=== PATIENT | male | born 1960 | race Caucasian/White ===

== ENCOUNTER → 2016-08-31 | Outpatient (CLI) | payer MEDICARE, MEDICAID ==
[~2016-08-31] MED LIST: ACETAMINOPHEN W1 TA6 PO; ALLEGRA 180MG180 MG PO; AMBIEN 10MG10 MG PO; AMBIEN10 MG PO; ASPIRIN 81M81 MG/TA2 PO; ATARAX 25MG25 MG/TAB PO; ATENOLOL50 MG PO; CEPHALEXIN500 M1; CLARITIN 1010 MG/TAB PO; CLARITIN10 MG PO; COLACE 100100 MG/CAP PO; FEXOFENADINE60 MG PO; FLOMAX 0.40.4 MG/CAP PO; HYTRIN 5MG C5 MG/CAP PO; IMDUR 30MG30 MG/TAB PO; IMDUR 60MG60 MG/TAB PO; ISOSORBIDE MON120 MG PO; KLOR-CON M2020 MEQ PO; LASIX 20MG TABL20 MG PO; LIPITOR 10MG10 MG PO; LIPITOR 80MG80 MG PO; LOPRESSOR 550 MG/TAB PO; LORTAB 5/500 501 TAB PO; LOW DOSE ASPIRI81 MG PO; METOPROLOL SUCC50 MG PO; MOTRIN800 MG PO; NAPROXEN DELAY500 MG PO; NITROSTAT0.4 MG/TAB SL; NORCO 325 MG-51 TA1 PO; NORCO 325 MG-51 TAB PO; NORVASC 5MG5 MG/TAB PO; PACERONE200 MG PO; PLAVIX 75MG TAB75 MG PO; POTASSIUM CHLO10 ME1 PO; POTASSIUM GLUCO80 MG; POTASSIUM GLUCO80 MG PO; POTASSIUM20 MEQ PO; PRAVACHOL 40MG40 MG PO; PRAVACHOL80 MG PO; PREDNISONE20 MG PO; RANEXA 500MG T500 MG PO; RANEXA1000 MG PO; TENORMIN 5050 MG/TAB PO; TERAZOSIN5 MG PO; TOPROL XL 50MG50 MG PO; TOPROL XL100 MG PO; TYLENOL W/COD1 UDTAB PO; ZANTAC 150MG T150 MG PO; [UNRECOGNIZED DRUG - REMARK]
== END ==
LOC: COL.RAD 08-26 13:00
DX: I71.4 Abdominal aortic aneurysm, without rupture (principal); Z98.890 Other specified postprocedural states; N13.39 Other hydronephrosis; Z98.84 Bariatric surgery status; K44.9 Diaphragmatic hernia without obstruction or gangrene; I51.7 Cardiomegaly; I25.10 Atherosclerotic heart disease of native coronary artery without angina pectoris
CPT/HCPCS: Q9967

== ENCOUNTER 2016-10-20 13:08 | Inpatient (IN) | payer MEDICARE, MEDICAID ==
[~2016-10-20] VITALS: Ht 180.3 cm; Wt 157.0 kg
[~2016-10-20 13:08] MED LIST changes: -COLACE 100100 MG/CAP PO; -LASIX 20MG TABL20 MG PO; -NITROSTAT0.4 MG/TAB SL; -NORVASC 5MG5 MG/TAB PO; -ZANTAC 150MG T150 MG PO
[2016-10-20 13:43] LABS: BASO % 0.5 % (0.0-2.0); EOS # 0.2 (0.0-0.7); EOS % 3.3 % (0-4.0); GRAN # 4.2 (1.4-6.5); GRAN % 67.6 % (42.2-75.2); HEMOGLOBIN 12.6 g/dl (13.5-18.0); MEAN CELL VOLUME 92 fl (80.0-100.0); MEAN CORPUSCULAR HEMOGLOBIN 32 pg (27.0-31.0); MEAN CORPUSCULAR HGB CONC 34 g/dl (33.0-37.0); MEAN PLATELET VOLUME 9.6 fl (7.4-10.4); MONO # 0.7 (0.1-0.6); MONO % 11.1 % (1.7-9.3); PLATELET COUNT 104 K/mm3 (130-400); REDCELL DISTRIBUTION WIDTH-CV 13.2 % (11.5-14.5); WHITE BLOOD COUNT 6.1 K/mm3 (4.8-10.8)
[2016-10-20 13:44] LABS: HEMATOCRIT 36.6 % (42.0-52.0)
[2016-10-20 13:47] LABS: INR 1.1 (0.8-3.0); PROTHROMBIN TIME 12.2 SECONDS (9.7-12.8)
[2016-10-20 13:50] LABS: PARTIAL THROMBOPLASTIN TIME 28.8 SECONDS (26.0-37.0)
[2016-10-20 13:57] LABS: ALANINE AMINOTRANSFERASE 27 U/L (21-72); ALBUMIN 3.7 gm/dL (3.5-5.0); ALKALINE PHOSPHATASE 55 U/L (50-136); ANION GAP 9 mmol/L (7-16); BILIRUBIN,TOTAL 1.2 mg/dL (0.0-1.0); BLOOD UREA NITROGEN 18 mg/dL (9-20); CALCIUM 8.8 mg/dL (8.4-10.2); CARBON DIOXIDE 25 mmol/L (22-30); CHLORIDE 104 mmol/L (98-107); CREATININE, serum 1.05 mg/dL (0.66-1.25); GLUCOSE 104 mg/dL (74-106); POTASSIUM 4.5 mmol/L (3.4-5.0); SODIUM 138 mmol/L (137-145); TOTAL PROTEIN 6.5 gm/dL (6.4-8.2)
[2016-10-20 14:08] LABS: TROPONIN-I < 0.012 ng/mL (0.000-0.034)
[2016-10-20] MEDS ORDERED: NITROSTAT0.4 MG/TAB SL (15:18)
[2016-10-20 16:24] VITALS: BP 130/66; PULSE 53; TEMP 97.9
[2016-10-20 19:45] VITALS: BP 116/64; PULSE 52; TEMP 97.4
[2016-10-20 23:28] VITALS: BP 112/54; PULSE 58; TEMP 98.7
[2016-10-21 03:50] VITALS: BP 121/47; PULSE 58; TEMP 98.4
[2016-10-21 07:28] VITALS: BP 118/64; PULSE 59; TEMP 98
[2016-10-21] MEDS ORDERED: NORVASC 5MG5 MG/TAB PO (11:23)
[2016-10-21 11:54] VITALS: BP 105/58; PULSE 54; TEMP 98.3
== END 2016-10-21 12:20 | disposition home or self-care (01) | DRG 311 ==
LOC: COL.ER 13:08 → MEDICAL 14:40
PROVIDERS: Family Medicine; Internal Medicine
DX: I20.0 Unstable angina (principal); Z68.42 Body mass index [BMI] 45.0-49.9, adult; E66.01 Morbid (severe) obesity due to excess calories; I10 Essential (primary) hypertension; D69.6 Thrombocytopenia, unspecified; Z95.5 Presence of coronary angioplasty implant and graft; Z95.1 Presence of aortocoronary bypass graft; Z86.718 Personal history of other venous thrombosis and embolism; Z88.0 Allergy status to penicillin; Z87.891 Personal history of nicotine dependence; Z86.73 Personal history of transient ischemic attack (TIA), and cerebral infarction without residual deficits
CPT/HCPCS: 99223-AI; 99238; J1650

== ENCOUNTER → 2016-11-30 | Outpatient (CLI) | payer MEDICARE, MEDICAID ==
[~2016-11-30] VITALS: Ht 180.3 cm; Wt 156.7 kg
[~2016-11-30] MED LIST changes: +COLACE 100100 MG/CAP PO; +LASIX 20MG TABL20 MG PO; +NITROSTAT0.4 MG/TAB SL; +NORVASC 5MG5 MG/TAB PO; +ZANTAC 150MG T150 MG PO
[2016-11-30 12:57] VITALS: BP 125/65; PULSE 72
== END ==
LOC: LIGHT 09:54
DX: I10 Essential (primary) hypertension (principal); E66.01 Morbid (severe) obesity due to excess calories; Z68.42 Body mass index [BMI] 45.0-49.9, adult; Z98.84 Bariatric surgery status

== ENCOUNTER → 2017-01-25 | Outpatient (CLI) | payer MEDICARE, MEDICAID | LOC: EDSTATUS 07:46 → COL.RAD 09:58 | DX: N20.0 Calculus of kidney (principal) | CPT/HCPCS: A9503 ==

== ENCOUNTER 2017-03-22 10:04 | Emergency (ER) | payer MEDICARE, MEDICAID ==
[2006-10-17 10:47] VITALS: BP 146/60
[~2017-03-22] VITALS: Ht 180.3 cm; Wt 156.8 kg
[~2017-03-22 10:04] MED LIST changes: -COLACE 100100 MG/CAP PO; -LASIX 20MG TABL20 MG PO; -ZANTAC 150MG T150 MG PO
[2017-03-22 10:08] VITALS: TEMP 97.7
[2017-03-22 10:40] LABS: BASO % 0.8 % (0.0-2.0); EOS # 0.2 (0.0-0.7); EOS % 3.5 % (0-4.0); GRAN # 3.1 (1.4-6.5); GRAN % 60.5 % (42.2-75.2); HEMATOCRIT 37.2 % (42.0-52.0); HEMOGLOBIN 12.8 g/dl (13.5-18.0); LYMPH # 1.1 (1.2-3.4); LYMPH % 21.9 % (20.0-51.0); MEAN CELL VOLUME 91 fl (80.0-100.0); MEAN CORPUSCULAR HEMOGLOBIN 31 pg (27.0-31.0); MEAN CORPUSCULAR HGB CONC 34 g/dl (33.0-37.0); MEAN PLATELET VOLUME 9.4 fl (7.4-10.4); MONO # 0.6 (0.1-0.6); MONO % 12.5 % (1.7-9.3); PLATELET COUNT 122 K/mm3 (130-400); RED BLOOD COUNT 4.07 M/mm3 (4.20-5.60); REDCELL DISTRIBUTION WIDTH-CV 13.1 % (11.5-14.5); WHITE BLOOD COUNT 5.1 K/mm3 (4.8-10.8)
[2017-03-22 10:48] LABS: ADJUSTED CALCIUM 8.9 mg/dL (8.4-10.2); ALANINE AMINOTRANSFERASE 23 U/L (21-72); ALKALINE PHOSPHATASE 58 U/L (50-136); ANION GAP 10 mmol/L (7-16); BLOOD UREA NITROGEN 18 mg/dL (9-20); CALCIUM 8.9 mg/dL (8.4-10.2); CARBON DIOXIDE 22 mmol/L (22-30); CHLORIDE 105 mmol/L (98-107); CREATININE, serum 1.02 mg/dL (0.66-1.25); GLUCOSE 113 mg/dL (74-106); POTASSIUM 4.4 mmol/L (3.4-5.0); SODIUM 137 mmol/L (137-145); TOTAL PROTEIN 6.8 gm/dL (6.4-8.2)
[2017-03-22 11:00] LABS: B-TYPE NATRIURETIC PEPTIDE 371 pg/mL (0-125)
[2017-03-22 11:02] LABS: TROPONIN-I < 0.012 ng/mL (0.000-0.034)
[2017-03-22] MEDS ORDERED: LASIX 20MG TABL20 MG PO (11:20)
[2017-03-22] MEDS ORDERED: COLACE 100100 MG/CAP PO (11:21)
[2017-03-22] MEDS ORDERED: ZANTAC 150MG T150 MG PO (11:21)
[2017-03-22 12:13] VITALS: BP 112/64; PULSE 55
== END 2017-03-22 12:13 | disposition home or self-care (01) ==
LOC: COL.ER 10:04
PROVIDERS: Nurse Practitioner
DX: S61.441A Puncture wound with foreign body of right hand, initial encounter (principal); R07.2 Precordial pain; I10 Essential (primary) hypertension; I48.92 Unspecified atrial flutter; I25.10 Atherosclerotic heart disease of native coronary artery without angina pectoris; E78.5 Hyperlipidemia, unspecified; N40.0 Benign prostatic hyperplasia without lower urinary tract symptoms; Z23 Encounter for immunization; Z87.891 Personal history of nicotine dependence; Z79.82 Long term (current) use of aspirin; Z79.02 Long term (current) use of antithrombotics/antiplatelets; Z86.73 Personal history of transient ischemic attack (TIA), and cerebral infarction without residual deficits; Z86.79 Personal history of other diseases of the circulatory system; Z95.1 Presence of aortocoronary bypass graft; Z98.890 Other specified postprocedural states; W45.8XXA Other foreign body or object entering through skin, initial encounter; Y92.009 Unspecified place in unspecified non-institutional (private) residence as the place of occurrence of the external cause
CPT/HCPCS: J1170; J2270; J2405; J7040

== ENCOUNTER → 2017-06-17 | Outpatient (CLI) | payer MEDICARE, MEDICAID ==
[~2017-06-17] VITALS: Ht 180.3 cm; Wt 173.5 kg
[~2017-06-17] MED LIST changes: +COLACE 100100 MG/CAP PO; +LASIX 20MG TABL20 MG PO; +PHENTERMINE15 MG PO; +ZANTAC 150MG T150 MG PO
== END ==
LOC: LIGHT 11:07
DX: Z98.84 Bariatric surgery status (principal); I10 Essential (primary) hypertension; E66.01 Morbid (severe) obesity due to excess calories; Z68.43 Body mass index [BMI] 50.0-59.9, adult; Z71.3 Dietary counseling and surveillance

== ENCOUNTER → 2017-07-15 | Outpatient (CLI) | payer MEDICARE, MEDICAID ==
[~2017-07-15] VITALS: Ht 180.3 cm; Wt 170.3 kg
[2017-07-15 14:32] VITALS: BP 120/72; PULSE 60
== END ==
LOC: LIGHT 10:58
DX: Z98.84 Bariatric surgery status (principal); I10 Essential (primary) hypertension; E66.01 Morbid (severe) obesity due to excess calories; Z68.43 Body mass index [BMI] 50.0-59.9, adult; Z71.3 Dietary counseling and surveillance

== ENCOUNTER → 2017-09-16 | Outpatient (CLI) | payer MEDICARE, MEDICAID ==
[~2017-09-16] VITALS: Ht 180.3 cm; Wt 167.1 kg
[2017-09-16 13:58] VITALS: BP 140/80; PULSE 72
== END ==
LOC: LIGHT 08-19 09:50
DX: Z98.84 Bariatric surgery status (principal); I10 Essential (primary) hypertension; E66.01 Morbid (severe) obesity due to excess calories; Z68.43 Body mass index [BMI] 50.0-59.9, adult; Z71.3 Dietary counseling and surveillance; I25.10 Atherosclerotic heart disease of native coronary artery without angina pectoris
CPT/HCPCS: G0463

== ENCOUNTER → 2017-11-11 | Outpatient (CLI) | payer MEDICARE, MEDICAID ==
[~2017-11-11] VITALS: Ht 180.3 cm; Wt 167.4 kg
[2017-11-11 09:08] VITALS: BP 150/64; PULSE 60
== END ==
LOC: LIGHT 10-21 10:05
DX: Z98.84 Bariatric surgery status (principal); I10 Essential (primary) hypertension; E66.01 Morbid (severe) obesity due to excess calories; Z68.43 Body mass index [BMI] 50.0-59.9, adult; Z71.3 Dietary counseling and surveillance; I25.10 Atherosclerotic heart disease of native coronary artery without angina pectoris
CPT/HCPCS: G0463

== ENCOUNTER → 2018-05-05 | Outpatient (CLI) | payer MEDICARE, MEDICAID ==
[~2018-05-05] VITALS: Ht 180.3 cm; Wt 167.8 kg
[~2018-05-05] MED LIST changes: +FASTIN30 MG PO; -PHENTERMINE15 MG PO
[2018-05-05 14:47] VITALS: BP 142/72; PULSE 60
== END ==
LOC: LIGHT 03-03 16:07
DX: I10 Essential (primary) hypertension (principal); I25.10 Atherosclerotic heart disease of native coronary artery without angina pectoris; Z98.84 Bariatric surgery status; E66.01 Morbid (severe) obesity due to excess calories; Z68.43 Body mass index [BMI] 50.0-59.9, adult; Z71.3 Dietary counseling and surveillance
CPT/HCPCS: G0463

== ENCOUNTER → 2018-05-12 | Outpatient (CLI) | payer MEDICARE, MEDICAID | LOC: COL.RAD 07:59 | DX: I71.4 Abdominal aortic aneurysm, without rupture (principal); Z95.828 Presence of other vascular implants and grafts; Z98.84 Bariatric surgery status | CPT/HCPCS: Q9967 ==

== ENCOUNTER → 2019-09-12 | Outpatient (CLI) | payer MEDICARE, MEDICAID | LOC: COL.RAD 09-11 10:30 | DX: Z01.812 Encounter for preprocedural laboratory examination (principal); I71.4 Abdominal aortic aneurysm, without rupture | CPT/HCPCS: Q9967 ==

== ENCOUNTER 2019-12-19 10:40 | Emergency (ER) | payer MEDICARE, MEDICAID ==
[~2019-12-19] VITALS: Ht 180.3 cm; Wt 150.0 kg
[~2019-12-19 10:40] MED LIST changes: +HYTRIN 2MG CAPSU2 MG PO; -HYTRIN 5MG C5 MG/CAP PO
[2019-12-19 10:45] VITALS: TEMP 97.3
[2019-12-19 12:05] LABS: BASO % 0.7 % (0.0-2.0); EOS # 0.1 (0.0-0.7); EOS % 2.2 % (0-4.0); GRAN # 3.4 (1.4-6.5); GRAN % 62.4 % (42.2-75.2); HEMATOCRIT 40.1 % (42.0-52.0); LYMPH # 1.2 (1.2-3.4); LYMPH % 22.5 % (20.0-51.0); MEAN CELL VOLUME 94 fl (80.0-100.0); MEAN CORPUSCULAR HEMOGLOBIN 33 pg (27.0-31.0); MEAN CORPUSCULAR HGB CONC 35 g/dl (33.0-37.0); MEAN PLATELET VOLUME 9.7 fl (7.4-10.4); MONO # 0.6 (0.1-0.6); MONO % 11.7 % (1.7-9.3); PLATELET COUNT 123 K/mm3 (130-400); RED BLOOD COUNT 4.25 M/mm3 (4.20-5.60); REDCELL DISTRIBUTION WIDTH-CV 13.2 % (11.5-14.5)
[2019-12-19 12:06] LABS: ALANINE AMINOTRANSFERASE 23 U/L (4-49); ALKALINE PHOSPHATASE 73 U/L (50-136); ANION GAP 7 mmol/L (7-16); AST,SGOT 30 U/L (15-37); BLOOD UREA NITROGEN 16 mg/dL (9-20); CALCIUM 9.2 mg/dL (8.4-10.2); CARBON DIOXIDE 26 mmol/L (22-30); CHLORIDE 103 mmol/L (98-107); CREATININE, serum 1.03 (0.66-1.25); GLUCOSE 106 mg/dL (74-106); POTASSIUM 4.5 mmol/L (3.4-5.0); SODIUM 136 mmol/L (137-145); TOTAL PROTEIN 6.9 gm/dL (6.4-8.2)
[2019-12-19 12:20] LABS: TROPONIN-I < 0.012 ng/mL (0.000-0.035)
[2019-12-19 12:49] LABS: INR 1.1 (0.8-3.0); PARTIAL THROMBOPLASTIN TIME 32.6 SECONDS (26.0-37.0); PROTHROMBIN TIME 12.1 SECONDS (9.7-12.8)
[2019-12-19 15:22] VITALS: BP 125/79; PULSE 58
== END 2019-12-19 15:27 | disposition home or self-care (01) ==
LOC: COL.ER 10:40
PROVIDERS: Family Medicine
DX: R07.89 Other chest pain (principal); I25.10 Atherosclerotic heart disease of native coronary artery without angina pectoris; I42.9 Cardiomyopathy, unspecified; Z95.5 Presence of coronary angioplasty implant and graft; Z79.82 Long term (current) use of aspirin

== ENCOUNTER 2020-07-29 12:07 | Day surgery (SDC) | payer MEDICARE, MEDICAID ==
[2006-10-17 10:47] VITALS: BP 146/60
[~2020-07-29] VITALS: Ht 180.3 cm; Wt 167.7 kg
[2020-07-29] VITALS (10 sets, daily range): BP systolic 98–133; BP diastolic 51–72; PULSE 55–92; TEMP 97.5
[2020-07-29] MEDS ORDERED: NORVASC 5MG5 MG/TAB PO (13:16)
[2020-07-29 13:20] LABS: INR 1.1 (0.8-3.0); PROTHROMBIN TIME 12.5 SECONDS (9.7-12.8)
[2020-07-29 13:22] LABS: HEMATOCRIT 38.2 % (42.0-52.0); HEMOGLOBIN 13.1 g/dl (13.5-18.0); MEAN CELL VOLUME 94 fl (80.0-100.0); MEAN CORPUSCULAR HEMOGLOBIN 32 pg (27.0-31.0); MEAN CORPUSCULAR HGB CONC 34 g/dl (33.0-37.0); MEAN PLATELET VOLUME 9.2 fl (7.4-10.4); PLATELET COUNT 139 K/mm3 (130-400); RED BLOOD COUNT 4.05 M/mm3 (4.20-5.60); REDCELL DISTRIBUTION WIDTH-CV 13.1 % (11.5-14.5)
[2020-07-29 13:23] LABS: CALCIUM 8.9 mg/dL (8.4-10.2); CREATININE, serum 0.97 (0.66-1.25); POTASSIUM 4.5 mmol/L (3.4-5.0)
[2020-07-29] MEDS ORDERED: PEPCID 20MG TAB20 MG PO (13:26)
--- NOTE | 2020-07-29 15:15 | NUR ---
Report from Jacob PLATT. Transferred from analytical laboratory technician by bed. Alert and oriented, denies pain and needs at this time. Left Tband with 16 cc air in band CD&I, good pulses and cap refill < 3 secs. VSS
--- NOTE | 2020-07-29 17:48 | NUR ---
Air released from Tband and pressure dressing applied. INT discontinued intact.
--- NOTE | 2020-07-29 18:12 | NUR ---
Discharge instructions given. Transferred to private car by [facility]
== END 2020-07-29 18:00 | disposition home or self-care (01) ==
LOC: COL.CAR 12:07
PROVIDERS: Internal Medicine Cardiovascular Disease
DX: I25.110 Atherosclerotic heart disease of native coronary artery with unstable angina pectoris (principal); I48.0 Paroxysmal atrial fibrillation; N40.0 Benign prostatic hyperplasia without lower urinary tract symptoms; I71.4 Abdominal aortic aneurysm, without rupture; F32.9 Major depressive disorder, single episode, unspecified; E78.5 Hyperlipidemia, unspecified; R73.9 Hyperglycemia, unspecified; I10 Essential (primary) hypertension; E66.9 Obesity, unspecified; G40.909 Epilepsy, unspecified, not intractable, without status epilepticus; I87.2 Venous insufficiency (chronic) (peripheral); R91.1 Solitary pulmonary nodule; Z88.1 Allergy status to other antibiotic agents; Z88.0 Allergy status to penicillin; Z79.82 Long term (current) use of aspirin; Z79.02 Long term (current) use of antithrombotics/antiplatelets; Z87.891 Personal history of nicotine dependence; Z86.718 Personal history of other venous thrombosis and embolism; Z86.73 Personal history of transient ischemic attack (TIA), and cerebral infarction without residual deficits
CPT/HCPCS: J1200; J1644; J2250; J3010; Q9967

== ENCOUNTER 2021-04-24 19:09 | Inpatient (IN) | payer MEDICARE ==
[~2021-04-24] VITALS: Ht 180.3 cm; Wt 158.5 kg
[~2021-04-24 19:09] MED LIST changes: +PEPCID 20MG TAB20 MG PO
[2021-04-24 19:20] LABS: HEMATOCRIT 39.5 % (42.0-52.0); HEMOGLOBIN 13.6 g/dl (13.5-18.0); MEAN CELL VOLUME 94 fl (80.0-100.0); MEAN CORPUSCULAR HEMOGLOBIN 32 pg (27.0-31.0); MEAN CORPUSCULAR HGB CONC 34 g/dl (33.0-37.0); MEAN PLATELET VOLUME 9.3 fl (7.4-10.4); PLATELET COUNT 105 K/mm3 (130-400); RED BLOOD COUNT 4.21 M/mm3 (4.20-5.60); REDCELL DISTRIBUTION WIDTH-CV 13.2 % (11.5-14.5)
[2021-04-24 19:32] LABS: ALANINE AMINOTRANSFERASE 24 U/L (4-49); ALBUMIN 4.1 gm/dL (3.5-5.0); ALKALINE PHOSPHATASE 68 U/L (50-136); ANION GAP 7 mmol/L (7-16); AST,SGOT 30 U/L (15-37); BLOOD UREA NITROGEN 17 mg/dL (9-20); CARBON DIOXIDE 26 mmol/L (22-30); CHLORIDE 105 mmol/L (98-107); CREATININE, serum 1.16 (0.66-1.25); GLUCOSE 99 mg/dL (74-106); POTASSIUM 4.7 mmol/L (3.4-5.0); SODIUM 138 mmol/L (137-145)
[2021-04-24 19:48] LABS: TROPONIN-I < 0.012 ng/mL (0.000-0.035)
[2021-04-24 20:21] LABS: BAND 20 % (0-10); EOSINOPHIL 2 % (0-4); LYMPHOCYTE 16 % (20.0-51.0); METAMYELOCYTE 4 % (0-0); MYELOCYTE 4 % (0-0); NEUTROPHILS 54 % (42.0-75.2); NUCLEATED RED BLOOD CELL 1 (0-6); PLATELET ESTIMATE DECREASED (NORMAL)
[2021-04-24] MEDS ORDERED: NORCO 325 MG-51 TAB PO (23:00)
[2021-04-24] MEDS ORDERED: HYTRIN 2MG CAPSU2 MG PO (23:00)
[2021-04-24] MEDS ORDERED: LIPITOR 80MG80 MG PO (23:01)
[2021-04-24] MEDS ORDERED: RANEXA1000 MG PO (23:01)
[2021-04-24] MEDS ORDERED: TOPROL XL100 MG PO (23:01)
[2021-04-24] MEDS ORDERED: PLAVIX 75MG TAB75 MG PO (23:01)
[2021-04-24] MEDS ORDERED: FLOMAX 0.40.4 MG/CAP PO (23:01)
[2021-04-24] MEDS ORDERED: ISOSORBIDE MON120 MG PO (23:02)
[2021-04-24] MEDS ORDERED: LASIX 20MG TABL20 MG PO (23:02)
[2021-04-24] MEDS ORDERED: AMBIEN 10MG10 MG PO (23:03)
[2021-04-24] MEDS ORDERED: NORVASC 5MG5 MG/TAB PO (23:03)
[2021-04-24] MEDS ORDERED: NATURAL POTASS595 MG PO (23:08)
[2021-04-24] MEDS ORDERED: TYLENOL W/COD1 UDTAB PO (23:09)
[2021-04-25] VITALS (24 sets, daily range): BP systolic 87–115; BP diastolic 35–85; PULSE 63–96; TEMP 97.9–98.9
[2021-04-25 00:01] LABS: MAGNESIUM 1.4 mg/dL (1.6-2.3)
[2021-04-25 01:07] LABS: INR 1.2 (0.8-3.0); PROTHROMBIN TIME 13.8 SECONDS (9.7-12.8)
[2021-04-25 01:10] LABS: PARTIAL THROMBOPLASTIN TIME 28.1 SECONDS (26.0-37.0)
[2021-04-25 05:51] LABS: COLLECTION METHOD CLEAN CATCH
[2021-04-25 05:58] LABS: MUCOUS Present /lpf; PH 5 (5-8); SQUAMOUS EPITHELIAL 0-2 /hpf; URINE APPEARANCE Hazy; URINE BACTERIA None Seen /hpf; URINE BILIRUBIN Negative (NEGATIVE); URINE BLOOD 3+ (NEGATIVE); URINE COLOR Amber; URINE GLUCOSE Negative (NEGATIVE); URINE KETONE Negative (NEGATIVE); URINE LEUKOCYTE ESTERASE 2+ (NEGATIVE); URINE NITRATE Negative (NEGATIVE); URINE PROTEIN(semi-quant) 1+ (NEGATIVE); URINE RBC >50 /hpf
--- NOTE | 2021-04-25 09:45 | NUR ---
Critical troponin reported to cardiology, hospitalist. They reported to . They are rounding on patient, plan of care reivewed & orders being obtained. IVF bolus being given, BP slowing improving.
--- NOTE | 2021-04-25 10:10 | NUR ---
PT TAKEN TO UI ARCHITECT @ THIS TIME.
--- NOTE | 2021-04-25 10:15 | NUR ---
Patient to director of cardiac cath lab with [facility]. Patient Heparin drip stopped. Ns to gravity. Consent obtained. Patient reports having multiple caths in the past. Asa & Plavix per orders. He has been NPO. Will call lab upon patient return, they had not yet obtained labs.
--- NOTE | 2021-04-25 10:17 | NUR ---
Patient in Surgery, unable to speak with patient about discharge plan.
--- NOTE | 2021-04-25 10:32 | NUR ---
SEE MERGE FOR ALL MEDICATION ADMINISTRATION TIMES, INTRA AND POST SEDATION ASSESSMENTS
--- NOTE | 2021-04-25 11:43 | NUR ---
Patient has retuned from woven label designer. Left radial site CDI,band on. Blood pressures remain low. Fluids infusing per orders. Held lasix,toprol,imdur,norvasc due to low BP. Heart healthy diet ordered. Will keri monitor.
--- NOTE | 2021-04-25 13:32 | NUR ---
5 ML AIR TAKEN OUT OF RADIAL ARMBAND. NO BLEEDING NOTED. WILL CONTINUE TO MONITOR FOR BLEEDING.
[2021-04-25 14:18] LABS: PATHOLOGY DIFF REVIEW OK
--- NOTE | 2021-04-25 14:33 | NUR ---
NO BLEEDING NOTED UNDER RADIAL ARMBAND. ADDITIONAL 5ML AIR TAKEN OUT. AFTER 5 MINUTES, NO BLEEDING WAS SEEN AGAIN. REMAINING AIR TAKEN OUT. ARMBAND LEFT ON @ THIS TIME. WILL CONTINUE TO MONITOR. PT EDUCATED ON PROCEDURE ET TO NOTIFY OF NEW BLEEDING, PT ET SPOUSE DEMONSTRATE UNDERSTANDING.
--- NOTE | 2021-04-25 14:38 | NUR ---
First visit from the equal opportunity counselor. No needs right now.
--- NOTE | 2021-04-25 15:30 | NUR ---
Selina FRANKLIN, met with patient at b/s. Patient lives at home with his , Sherron, in [place]. Patient has several DMEs (walker, cane, elec wheelchair). assists patient with most ADLS, aside from showering and eating. Patient has had 5 bypass surgeries prior; this admission was d/t kidney stone and patient had a heart attack while in the ER. PCP is confirmed as Dr. Ma and patient uses [facility] for his pharmacy needs, which he has no difficulty in getting. Patient states he does not have a DPOA but verbalizes that his is his agent and he has no desire to complete POA form. *Patient will likely d/c home with spouse.
--- NOTE | 2021-04-25 15:41 | NUR ---
LEFT RADIAL WRISTBAND TAKEN OFF. BANDAID PUT ONTO SITE. NO BLEEDING SEEN. PT DEMONSTATES UNDERSTANDING TO NOTIFY STAFF OF CHANGES.
--- NOTE | 2021-04-25 18:13 | NUR ---
PT CALLS FOR ASSISTANCE TO CHANGE BED LINENS. PT HAD SPILLED URINE ONTO SHEETS. PT IS ABLE TO STAND @ EDGE OF BED WITH MINIMAL ASSISTANCE WHILE LINENS ARE CHANGED, NEEDS ASSISTANCE PUTTING HIS LEGS BACK INTO BED. PT REQUESTS PAIN MEDICATION R/T CHRONIC LEG PAIN. STATES THAT LEG PAIN IS MORE INTENSE THAN KIDNEY STONE PAIN. NORCO ADMINISTERED. PT DENIES OTHER NEEDS, RESP UNLABORED. NO BLEEDING SEEN @ RADIAL CATH SITE.
--- NOTE | 2021-04-25 23:13 | NUR ---
Patient assessed around 1950. Given scheduled APAP #3 for pain, but not effective. Given PRN Zwingle around 2230 as requested for pain to abdomen/flank pain. Continue to strain urine, urine dark valdez and cloudy. No stones at this time. Patient aware that he will be NPO after midnight for procedure tomorrow. Voices no questions, needs, or concerns at this time. Resting in bed with call light within reach.
[2021-04-26] VITALS (10 sets, daily range): BP systolic 99–134; BP diastolic 53–67; PULSE 69–89; TEMP 97–98.6
--- NOTE | 2021-04-26 06:11 | NUR ---
Patient has received PRN Averill and Dilaudid as requested for pain. NPO since midnight, sips of water with medication. Planning on surgical intervention today. Urine has been strained throughout this shift, and patient has not passed any stones. IV fluids continue per orders. Voices no questions, needs, or concerns at this time. Resting in bed with call light within reach.
[2021-04-26 07:33] LABS: CALCIUM 7.8 mg/dL (8.4-10.2); CREATININE, serum 1.09 (0.66-1.25); POTASSIUM 4.2 mmol/L (3.4-5.0)
[2021-04-26 07:52] LABS: HEMOGLOBIN 12.1 g/dl (13.5-18.0); MEAN CELL VOLUME 94 fl (80.0-100.0); MEAN CORPUSCULAR HEMOGLOBIN 32 pg (27.0-31.0); MEAN CORPUSCULAR HGB CONC 35 g/dl (33.0-37.0); MEAN PLATELET VOLUME 10.4 fl (7.4-10.4); PLATELET COUNT 66 K/mm3 (130-400); RED BLOOD COUNT 3.73 M/mm3 (4.20-5.60); REDCELL DISTRIBUTION WIDTH-CV 13.6 % (11.5-14.5)
[2021-04-26 09:13] LABS: BAND 15 % (0-10); LYMPHOCYTE 4 % (20.0-51.0); NEUTROPHILS 79 % (42.0-75.2); PLATELET ESTIMATE DECREASED (NORMAL)
--- NOTE | 2021-04-26 11:07 | NUR ---
PT TO SURGERY PER BED WITH KAY PLATT.
--- NOTE | 2021-04-26 15:43 | NUR ---
PT TO ROOM 329 PER BED WITH REPORT FROM KAY PLATT , PT IS A/O X3, REPORTING SPASMS FROM PASSING BROKEN STONES. PO JUVE GIVEN ORDERED. LUNGS CTA, VOIDING SM AMTS OF URINE IN URINAL.
--- NOTE | 2021-04-26 16:12 | NUR ---
PT RESTING IN BED REPORTING THAT PAIN MEDICATIONS EFFECTIVE IN RELIFE OF SYMPTOMS.
[2021-04-27 01:20] VITALS: BP 101/61; PULSE 66; TEMP 98.2
[2021-04-27 04:34] VITALS: BP 109/62; PULSE 66; TEMP 97.7
--- NOTE | 2021-04-27 06:01 | NUR ---
RESTING QUIETLY. nORCO FOR PAIN. PT GOT UP AND SHOWERED LAST NIGHT.
[2021-04-27 07:07] LABS: HEMOGLOBIN 11.1 g/dl (13.5-18.0); MEAN CELL VOLUME 93 fl (80.0-100.0); MEAN CORPUSCULAR HEMOGLOBIN 32 pg (27.0-31.0); MEAN CORPUSCULAR HGB CONC 35 g/dl (33.0-37.0); MEAN PLATELET VOLUME 10.1 fl (7.4-10.4); PLATELET COUNT 69 K/mm3 (130-400); RED BLOOD COUNT 3.46 M/mm3 (4.20-5.60); REDCELL DISTRIBUTION WIDTH-CV 13.1 % (11.5-14.5)
[2021-04-27 07:19] LABS: CALCIUM 8.1 mg/dL (8.4-10.2); CREATININE, serum 0.93 (0.66-1.25); POTASSIUM 4.6 mmol/L (3.4-5.0)
[2021-04-27 07:21] LABS: HEMATOCRIT 32.2 % (42.0-52.0)
[2021-04-27 08:00] VITALS: BP 103/59; PULSE 54; TEMP 97.8
--- NOTE | 2021-04-27 10:06 | NUR ---
PT SITTING UP IN BED WATCHING TV. DR ANTHONY IN TO SEE PT. OK FOR DISCHARGE FROM UROLOGY. DR NO IN TO SEE PT THIS AM. PT DENIES NEEDS AT THIS TIME. PT REPORTS LESSONING OF SPASMS.
[2021-04-27 12:00] VITALS: BP 105/59; PULSE 54; TEMP 98.7
[2021-04-27 15:39] VITALS: BP 101/48; PULSE 63; TEMP 98
[2021-04-27] MEDS ORDERED: OMNICEF 300MG300 MG PO (17:11)
== END 2021-04-27 18:00 | disposition home or self-care (01) | DRG 853 ==
LOC: COL.ER 19:09 → SURG 21:26
PROVIDERS: Nurse Practitioner; Nurse Practitioner Family; Physician Assistant; Urology; ADMIT Internal Medicine
PROC: 4A023N7 Measurement of Cardiac Sampling and Pressure, Left Heart, Percutaneous Approach (ICD-10-PCS; 2021-04-25)
PROC: B2111ZZ Fluoroscopy of Multiple Coronary Arteries using Low Osmolar Contrast (ICD-10-PCS; 2021-04-25)
PROC: B2151ZZ Fluoroscopy of Left Heart using Low Osmolar Contrast (ICD-10-PCS; 2021-04-25)
PROC: BT1FYZZ Fluoroscopy of Left Kidney, Ureter and Bladder using Other Contrast (ICD-10-PCS; 2021-04-26)
PROC: 0TC78ZZ Extirpation of Matter from Left Ureter, Via Natural or Artificial Opening Endoscopic (ICD-10-PCS; principal; 2021-04-26 11:30)
PROC: 0T778DZ Dilation of Left Ureter with Intraluminal Device, Via Natural or Artificial Opening Endoscopic (ICD-10-PCS; 2021-04-26 11:30)
DX: A41.9 Sepsis, unspecified organism (principal); I21.4 Non-ST elevation (NSTEMI) myocardial infarction; Z68.42 Body mass index [BMI] 45.0-49.9, adult; N13.2 Hydronephrosis with renal and ureteral calculous obstruction; N39.0 Urinary tract infection, site not specified; I10 Essential (primary) hypertension; I48.91 Unspecified atrial fibrillation; I87.2 Venous insufficiency (chronic) (peripheral); Z20.822 Contact with and (suspected) exposure to COVID-19; I35.0 Nonrheumatic aortic (valve) stenosis; I25.10 Atherosclerotic heart disease of native coronary artery without angina pectoris; D69.6 Thrombocytopenia, unspecified; E83.42 Hypomagnesemia; E66.01 Morbid (severe) obesity due to excess calories; E78.5 Hyperlipidemia, unspecified; Z79.891 Long term (current) use of opiate analgesic; Z79.82 Long term (current) use of aspirin; Z95.1 Presence of aortocoronary bypass graft; Z95.5 Presence of coronary angioplasty implant and graft; Z95.820 Peripheral vascular angioplasty status with implants and grafts; Z98.84 Bariatric surgery status; Z86.718 Personal history of other venous thrombosis and embolism; Z86.73 Personal history of transient ischemic attack (TIA), and cerebral infarction without residual deficits; Z87.891 Personal history of nicotine dependence; Z88.0 Allergy status to penicillin; Z88.1 Allergy status to other antibiotic agents
CPT/HCPCS: 99232-AI; 99233-AI; C1769; C1887; C2617; G0378; J0696; J1100; J1170; J1644; J1885; J2250; J2270; J2405; J2550; J2704; J3010; J3475; J7030; J7040; J7120; Q9967

== ENCOUNTER → 2022-04-07 | Outpatient (CLI) | payer MEDICARE ==
[~2022-04-07] MED LIST changes: +LEVAQUIN 5500 MG/TA1 PO; +NATURAL POTASS595 MG PO; +OMNICEF 300MG300 MG PO; +ZOLOFT 25MG25 MG PO
== END ==
LOC: COL.RAD 10:57
DX: R22.1 Localized swelling, mass and lump, neck (principal)

== ENCOUNTER 2022-04-28 09:23 | Day surgery (SDC) | payer MEDICARE, MEDICAID ==
[2006-10-17 10:47] VITALS: BP 146/60
[~2022-04-28] VITALS: Ht 180.3 cm; Wt 162.4 kg
[~2022-04-28 09:23] MED LIST changes: -LEVAQUIN 5500 MG/TA1 PO; -ZOLOFT 25MG25 MG PO
[2022-04-28 10:25] VITALS: BP 135/62; PULSE 53; TEMP 97.7
[2022-04-28] MEDS ORDERED: NITROSTAT0.4 MG/TAB SL (10:41)
[2022-04-28] MEDS ORDERED: LEVAQUIN 5500 MG/TA1 PO (10:41)
[2022-04-28] MEDS ORDERED: PEPCID 20MG TAB20 MG PO (10:42)
[2022-04-28] MEDS ORDERED: ZOLOFT 25MG25 MG PO (10:43)
[2022-04-28 12:50] VITALS: BP 115/49; PULSE 55; TEMP 97.7
[2022-04-28 13:05] VITALS: BP 111/54; PULSE 50
[2022-04-28 13:20] VITALS: BP 126/61; PULSE 50
[2022-04-28 13:35] VITALS: BP 125/63; PULSE 52
--- NOTE | 2022-04-28 13:38 | NUR ---
Pt arrived from the procedure A&Ox4 with minimal discomfort, previously was administered medication in PACU; VSS; to monitor postop and ensure tolerating PO oral and fluid intake.
== END 2022-04-28 14:15 | disposition home or self-care (01) ==
LOC: SDCO 09:23
DX: N20.1 Calculus of ureter (principal); T83.122A Displacement of indwelling ureteral stent, initial encounter; E66.9 Obesity, unspecified; I25.10 Atherosclerotic heart disease of native coronary artery without angina pectoris; Z86.73 Personal history of transient ischemic attack (TIA), and cerebral infarction without residual deficits; Y73.2 Prosthetic and other implants, materials and accessory gastroenterology and urology devices associated with adverse incidents; Z87.891 Personal history of nicotine dependence; Z86.16 Personal history of COVID-19; Z79.82 Long term (current) use of aspirin
CPT/HCPCS: C1769; C2617; J0690; J1100; J1885; J2405; J2704; J3010; J7120